=== PATIENT | male | born 1985 | race African-American/Black ===

== ENCOUNTER 2017-06-19 10:10 | Emergency (ER) | payer SELFPAY ==
[~2017-06-19] VITALS: Ht 177.8 cm; Wt 80.0 kg
[~2017-06-19 10:10] MED LIST: IBUP800T23 PO; PENVK500 PO
[2017-06-19 10:12] VITALS: BP 133/84; PULSE 76; RESP 20; TEMP 98.3; O2SAT 98
[2017-06-19] MEDS ORDERED: GABA100C4 PO ×2 (10:26→11:52)
[2017-06-19] MEDS ORDERED: METF1000 PO (10:26)
[2017-06-19 10:27] VITALS: BP 142/89; PULSE 69; RESP 17; O2SAT 99
[2017-06-19] MEDS ORDERED: SODIUM CHLOR 0.9% 1000 ML INJ 1,000 ML IV SCH (10:57)
[2017-06-19] MEDS ORDERED: SODIUM CHLORIDE 0.9% FLUSH 10 ML FLUSH IV FLUSH PRN (11:00)
--- NOTE | 2017-06-19 11:03 | PD ---
HPI Chief Complaint: Medical Clearance Time Seen by Provider: 10:45 Travel History International Travel<30 days: No Contact w/Intl Traveler<30days: No Traveled to known affect area: No History of Present Illness HPI 32-year-old male with recent diagnosed diabetes who presents requesting a complete physical examination. He reports that for 10 years he has been experiencing a pins and needles pain on the plantar aspect of his feet, paresthesias in the left arm, occasional lower abdominal pains, polyuria and polydipsia. He reports that he saw primary care physician in March of this year and he was told that his A1c was 14. He was started on metformin and he followed up with his primary care physician last month. He does not recall the name of his primary care physician. He denies any acute complaints. He denies any chest pain, shortness of breath, cough or congestion, fevers or chills, flank pain, testicular scrotal pain. 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) Diminished Hearing: No ?: Not Past Surgical History Surgical History: No Previous Surgery Social History Alcohol Use: Yes (VERY RARELY) Tobacco Use: No Substance Use: No Allergies-Medications (Allergen,Severity, Reaction): Coded Allergies: No Known Allergies (Verified , 08/11/14) Reported Meds & Prescriptions Reported Meds & Active Scripts Active Gabapentin 100 Mg Cap 200 Mg PO TID 14 Days Reported Gabapentin 100 Mg Cap 100 Mg PO TID Metformin (Metformin HCl) 1,000 Mg Tab 1,000 Mg PO BIDPC With meals Review of Systems Except as stated in HPI: all other systems reviewed are Neg Physical Exam Narrative GENERAL: Well-developed well-nourished male in no acute distress SKIN: Warm and dry. HEAD: Atraumatic. Normocephalic. EYES: Pupils equal and round. No scleral icterus. No injection or drainage. ENT: No nasal bleeding or discharge. Mucous membranes pink and moist. NECK: Trachea midline. No JVD. CARDIOVASCULAR: Regular rate and rhythm. No murmur appreciated. RESPIRATORY: No accessory muscle use. Clear to auscultation. Breath sounds equal bilaterally. GASTROINTESTINAL: Abdomen soft, non-tender, nondistended. Hepatic and splenic margins not palpable. There are no palpable inguinal hernias. examination reveals normal-appearing scrotum with descended testicles. MUSCULOSKELETAL: No obvious deformities. No clubbing. No cyanosis. No edema. Full range of motion in the upper and lower extremities, full muscle strength. 2+ radial pulses, dorsalis pedis pulse, posterior tibial pulses bilaterally. NEUROLOGICAL: Awake and alert. No obvious cranial nerve deficits. Motor grossly within normal limits. Normal speech. PSYCHIATRIC: Appropriate mood and affect; insight and judgment normal. Data Data Last Documented VS Vital Signs Date Time Temp Pulse Resp B/P (MAP) Pulse Ox O2 Delivery O2 Flow Rate FiO2 06/19/17 10:27 69 17 142/89 (106) 99 Room Air 06/19/17 10:12 98.3 Orders Orders Complete Blood Count With Diff (06/19/17 10:57) Comprehensive Metabolic Panel (06/19/17 10:57) Lipase (06/19/17 10:57) Urinalysis - C+S If Indicated (06/19/17 10:57) Iv Access Insert/Monitor (06/19/17 10:57) Ecg Monitoring (06/19/17 10:57) Oximetry (06/19/17 10:57) Sodium Chlor 0.9% 1000 Ml Inj (Ns 1000 M (06/19/17 10:57) Sodium Chloride 0.9% Flush (Ns Flush) (06/19/17 11:00) Beta Hydroxybutyrate (Acetone) (06/19/17 10:57) Labs Laboratory Tests Test 06/19/17 11:20 White Blood Count 4.6 TH/MM3 Red Blood Count 5.42 MIL/MM3 Hemoglobin 13.0 GM/DL Hematocrit 40.3 % Mean Corpuscular Volume 74.5 FL Mean Corpuscular Hemoglobin 24.1 PG Mean Corpuscular Hemoglobin Concent 32.3 % Red Cell Distribution Width 13.5 % Platelet Count 214 TH/MM3 Mean Platelet Volume 9.1 FL Neutrophils (%) (Auto) 54.5 % Lymphocytes (%) (Auto) 32.3 % Monocytes (%) (Auto) 10.0 % Eosinophils (%) (Auto) 1.9 % Basophils (%) (Auto) 1.3 % Neutrophils # (Auto) 2.5 TH/MM3 Lymphocytes # (Auto) 1.5 TH/MM3 Monocytes # (Auto) 0.5 TH/MM3 Eosinophils # (Auto) 0.1 TH/MM3 Basophils # (Auto) 0.1 TH/MM3 CBC Comment DIFF FINAL Differential Comment Blood Urea Nitrogen 12 MG/DL Creatinine 0.92 MG/DL Random Glucose 215 MG/DL Total Protein 7.5 GM/DL Albumin 3.7 GM/DL Calcium Level 8.8 MG/DL Alkaline Phosphatase 58 U/L Aspartate Amino Transf (AST/SGOT) 8 U/L Alanine Aminotransferase (ALT/SGPT) 22 U/L Total Bilirubin 0.3 MG/DL Sodium Level 137 MEQ/L Potassium Level 4.1 MEQ/L Chloride Level 102 MEQ/L Carbon Dioxide Level 31.0 MEQ/L Anion Gap 4 MEQ/L Estimat Glomerular Filtration Rate 116 ML/MIN Lipase 140 U/L B-Hydroxybutyrate 0.09 MMOL/L [facility] Medical Decision Making Medical Screen Exam Complete: Yes Emergency Medical Condition: Yes Medical Record Reviewed: Yes Differential Diagnosis Diabetic neuropathy, radiculopathy, lyme disease, electrolyte abnormality, brachial plexopathy, Raynaud's, Narrative Course This is a 32-year-old male who was diagnosed with diabetes in March who presents primarily requesting a complete physical examination. His only complaint is of a pins and needles pain on the plantar aspect of both feet, paresthesias in the left arm and lower abdominal discomfort which is been ongoing for 10 years with no acute worsening of symptoms. The patient appears well. His abdomen is soft and benign. Given the history of excessive showing a high A1c of and March, likely undiagnosed diabetes for years, I suspect that his symptoms are secondary to diabetic neuropathy. Plan today is for basic lab work. He will be given IV fluids. 1219: Was informed that the patient has eloped and signed AMA papers. I was examining another patient during this time and by the time I was informed the patient was already gone. Partially most of his lab work is resulted and is unremarkable. I was planning on prescribing him a higher dose of gabapentin for his neuropathic pain but the patient did not receive the prescription because he left AMA prior. Diagnosis Primary Impression: Left against medical advice Med/Other Pt SpecificInfo: No Change to Meds Scripts Gabapentin (Gabapentin) 100 Mg Cap 200 MG PO TID for 14 Days, CAP 0 Refills Prov: Parish Zacarias MD 06/19/17 Disposition: 07 AGAINST MEDICAL ADVICE Condition: Stable Jose Hamilton Jun 19, 2017 11:03
[2017-06-19 11:53] LABS: AUTOMATED NEUTROPHIL # 2.5 TH/MM3 (1.8-7.7); BASOPHIL # 0.1 TH/MM3 (0-0.2); BASOPHIL % 1.3 % (0.0-2.0); EOSINOPHIL # 0.1 TH/MM3 (0-0.4); EOSINOPHIL % 1.9 % (0.0-4.0); HEMATOCRIT 40.3 % (39.0-51.0); HEMO FLAGS DIFF FINAL; LYMPH % 32.3 % (9.0-44.0); LYMPHOCYTE # 1.5 TH/MM3 (1.0-4.8); MEAN CELL VOLUME 74.5 FL (80.0-100.0); MEAN CORPUSCULAR HEMOGLOBIN 24.1 PG (27.0-34.0); MEAN CORPUSCULAR HGB CONC 32.3 % (32.0-36.0); NEUT % 54.5 % (16.0-70.0); PLATELET COUNT 214 TH/MM3 (150-450); RED BLOOD COUNT 5.42 MIL/MM3 (4.50-5.90); RED CELL DISTRIBUTION WIDTH 13.5 % (11.6-17.2); WHITE BLOOD COUNT 4.6 TH/MM3 (4.0-11.0)
[2017-06-19 12:16] LABS: ALT (GPT) 22 U/L (12-78); ANION GAP 4 MEQ/L (5-15); AST (GOT) 8 U/L (15-37); BLOOD UREA NITROGEN 12 MG/DL (7-18); CHLORIDE 102 MEQ/L (98-107); GLOMERULAR FILTRATION RATE 116 ML/MIN (>89); POTASSIUM 4.1 MEQ/L (3.5-5.1); SODIUM (NA) 137 MEQ/L (136-145)
[2017-06-19 12:18] LABS: ALKALINE PHOSPHATASE 58 U/L (45-117); BETA-HYDROXYBUTYRATE 0.09 MMOL/L (0.00-0.39); TOTAL BILIRUBIN ADULT 0.3 MG/DL (0.2-1.0)
[2017-06-19 12:37] LABS: BLOOD, URINE NEG (NEG); COMMENT (UR) CULT NOT INDICATED; CULTURE IF INDICATED CULT NOT INDICATED; GLUCOSE,URINE TRACE mg/dL (NEG); KETONE, URINE NEG (NEG); MUCUS URINE FEW /lpf (OCC); NITRITE,URINE NEG (NEG); URINE COLOR YELLOW (YELLW/STRAW)
== END 2017-06-19 12:24 | disposition left against medical advice (07) ==
LOC: NEPD 10:10
DX: E11.42 Type 2 diabetes mellitus with diabetic polyneuropathy (principal); E11.65 Type 2 diabetes mellitus with hyperglycemia; Z79.84 Long term (current) use of oral hypoglycemic drugs
CPT/HCPCS: 80053; 81001; 82010; 83690; 85025; 99283; J7030

== ENCOUNTER 2017-06-19 12:46 | Emergency (ER) | payer SELFPAY ==
[~2017-06-19] VITALS: Ht 177.8 cm; Wt 80.0 kg
[~2017-06-19 12:46] MED LIST changes: +GABA100C4 PO; +METF1000 PO
[2017-06-19 12:48] VITALS: BP 133/90; PULSE 70; RESP 20; TEMP 97.8; O2SAT 99
--- NOTE | 2017-06-19 12:57 | PD ---
HPI Chief Complaint: Medical Clearance Time Seen by Provider: 12:50 Travel History International Travel<30 days: No Contact w/Intl Traveler<30days: No Traveled to known affect area: No History of Present Illness HPI This is a patient who I just saw anyone forcefully had to leave prior to test results coming back in order to drive his father to work. He returns now to follow up on the test results. Please see previous note for complete history of present illness. 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) Diminished Hearing: No Social History Alcohol Use: Yes (VERY RARELY) Tobacco Use: No Substance Use: No Allergies-Medications (Allergen,Severity, Reaction): Coded Allergies: No Known Allergies (Verified , 08/11/14) Reported Meds & Prescriptions Reported Meds & Active Scripts Active Gabapentin 100 Mg Cap 200 Mg PO TID 14 Days Reported Gabapentin 100 Mg Cap 100 Mg PO TID Metformin (Metformin HCl) 1,000 Mg Tab 1,000 Mg PO BIDPC With meals Review of Systems Except as stated in HPI: all other systems reviewed are Neg Physical Exam Narrative GENERAL: Well-nourished male in no acute distress SKIN: Warm and dry. HEAD: Atraumatic. Normocephalic. EYES: Pupils equal and round. No scleral icterus. No injection or drainage. ENT: No nasal bleeding or discharge. Mucous membranes pink and moist. NECK: Trachea midline. No JVD. CARDIOVASCULAR: Regular rate and rhythm. No murmur appreciated. RESPIRATORY: No accessory muscle use. Clear to auscultation. Breath sounds equal bilaterally. GASTROINTESTINAL: Abdomen soft, non-tender, nondistended. Hepatic and splenic margins not palpable. MUSCULOSKELETAL: No obvious deformities. No clubbing. No cyanosis. No edema. NEUROLOGICAL: Awake and alert. No obvious cranial nerve deficits. Motor grossly within normal limits. Normal speech. Data Data Last Documented VS Vital Signs Date Time Temp Pulse Resp B/P (MAP) Pulse Ox O2 Delivery O2 Flow Rate FiO2 06/19/17 12:48 97.8 70 20 133/90 (104) 99 Room Air MDM Medical Decision Making Medical Screen Exam Complete: Yes Emergency Medical Condition: Yes Medical Record Reviewed: Yes Differential Diagnosis Diabetes, DKA, diabetic neuropathy, plexopathy, radiculopathy Narrative Course The patient's lab work from his visit today have been reviewed and found to be reassuring. His glucose was in the low 200s. His lab work was otherwise unremarkable. The plan will be to double his gabapentin dosage from 100 mg tid to 200 mg tid. He will be following up with his primary care physician for continuing management of his diabetes. He is stable for discharge. Diagnosis Primary Impression: Hyperglycemia Additional Impressions: Dysesthesia Paresthesias Additional Instructions: As discussed, you are being given a prescription for gabapentin 200 mg 3 times a day which is double the previous dose that you are taking. Take this medication and discuss with your primary care physician in regards to its effectiveness. Continue to monitor your blood sugar on a regular basis. Return for any emergent medical conditions. Med/Other Pt SpecificInfo: Prescription(s) given Disposition: DISCHARGE HOME Condition: Stable Jose Hamilton Jun 19, 2017 12:57
== END 2017-06-19 17:47 | disposition home or self-care (01) ==
LOC: NEPD 12:46
DX: E11.65 Type 2 diabetes mellitus with hyperglycemia (principal); Z79.84 Long term (current) use of oral hypoglycemic drugs; E11.42 Type 2 diabetes mellitus with diabetic polyneuropathy
CPT/HCPCS: 99283